=== PATIENT | male | born 1985 | race African-American/Black ===

== ENCOUNTER 2021-09-03 07:51 | Emergency (ER) | payer MEDICAID ==
[~2021-09-03] VITALS: Ht 170.2 cm; Wt 82.0 kg
[~2021-09-03 07:51] MED LIST: [UNRECOGNIZED DRUG - REMARK]
[2021-09-03] MEDS ORDERED: ACETAMINOPHEN 325MG TABLET PO ONE (08:15)
[2021-09-03 08:21] VITALS: BP 138/91
[2021-09-03] MEDS ORDERED: TOPUD MT (10:40)
[2021-09-03] MEDS ORDERED: SKEL800 MT (10:40)
== END 2021-09-03 10:55 | disposition home or self-care (01) ==
LOC: ER 07:51
DX: M79.621 Pain in right upper arm (principal); J45.909 Unspecified asthma, uncomplicated; Z88.8 Allergy status to other drugs, medicaments and biological substances
CPT/HCPCS: 71046; 99283

== ENCOUNTER 2022-02-06 07:12 | Emergency (ER) | payer MEDICAID ==
[~2022-02-06] VITALS: Ht 170.2 cm; Wt 88.0 kg
[~2022-02-06 07:12] MED LIST changes: +SKEL800 MT; +TOPUD MT
[2022-02-06] MEDS ORDERED: KETOROLAC 60MG/2ML VIAL IM ONE (07:45)
[2022-02-06] MEDS ORDERED: OXYCODONE HCL/ACETAMINOPHEN 5/325MG TABLET PO ONE (07:45)
[2022-02-06 07:58] VITALS: BP 149/94
[2022-02-06] MEDS ORDERED: OXYC-100 PO (10:07)
[2022-02-06] MEDS ORDERED: IBUP-2028 PO (10:07)
== END 2022-02-06 10:42 | disposition home or self-care (01) ==
LOC: ER 07:12
DX: M62.830 Muscle spasm of back (principal); R51.9 Headache, unspecified; Z98.890 Other specified postprocedural states
CPT/HCPCS: 72125; 96372; 99284; J1885

== ENCOUNTER 2022-07-27 09:46 | Emergency (ER) | payer MEDICAID, OTHER ==
[~2022-07-27] VITALS: Ht 170.2 cm; Wt 91.0 kg
[~2022-07-27 09:46] MED LIST changes: +IBUP-2028 PO; +OXYC-100 PO
[2022-07-27 09:52] VITALS: BP 151/191
[2022-07-27] MEDS ORDERED: ALBUTEROL (0.083%) 2.5MG/3ML NEB HHN STA (13:11)
[2022-07-27] MEDS ORDERED: PREDNISONE 20MG TABLET PO STA (13:11)
[2022-07-27] MEDS ORDERED: IPRATROPIUM BROMIDE (0.02%) 0.5MG/2.5ML NEB HHN STA (13:11)
[2022-07-27] MEDS ORDERED: ALBU6.7H3 INH (14:11)
[2022-07-27] MEDS ORDERED: ALBU05 NEB (14:11)
[2022-07-27] MEDS ORDERED: GUAI600T26 MT (14:11)
[2022-07-27] MEDS ORDERED: P50 MT (14:11)
[2022-07-27] MEDS ORDERED: PREDNISONE 20MG TABLET PO SCH (15:30)
== END 2022-07-27 15:30 | disposition home or self-care (01) ==
LOC: ER 09:46
DX: J45.901 Unspecified asthma with (acute) exacerbation (principal); R00.0 Tachycardia, unspecified; Z90.5 Acquired absence of kidney; Z88.5 Allergy status to narcotic agent
CPT/HCPCS: 71045; 93005; 94644; 99285; J7512; Z7610

== ENCOUNTER 2023-03-09 19:32 | Emergency (ER) | payer MEDICAID, OTHER ==
[~2023-03-09] VITALS: Ht 170.2 cm; Wt 90.0 kg
[~2023-03-09 19:32] MED LIST changes: +ALBU05 NEB; +ALBU6.7H3 INH; +GUAI600T26 MT; +P50 MT
[2023-03-09 19:48] VITALS: BP 147/93; RESP 18; TEMP 98.2; O2SAT 97
[2023-03-09 19:50] VITALS: PULSE 93
[2023-03-09] MEDS ORDERED: ACET-2708 PO (21:25)
[2023-03-09] MEDS ORDERED: BO1 TP (21:25)
== END 2023-03-09 21:45 | disposition home or self-care (01) ==
LOC: ER 19:32
DX: S00.93XA Contusion of unspecified part of head, initial encounter (principal); S00.81XA Abrasion of other part of head, initial encounter; M25.561 Pain in right knee; M25.551 Pain in right hip; V49.9XXA Car occupant (driver) (passenger) injured in unspecified traffic accident, initial encounter; Y93.89 Activity, other specified; Y92.89 Other specified places as the place of occurrence of the external cause; Y99.8 Other external cause status
CPT/HCPCS: 73502; 73562; 99284